=== PATIENT | female | born 1980 | race Caucasian/White ===

== ENCOUNTER 2019-06-22 09:05 | Outpatient (CLI) | payer OTHER | END 2019-06-22 09:06 | disposition home or self-care (01) | LOC: LAB 09:05 → CT 09:10 | PROVIDERS: ATTEND Nurse Practitioner Family | DX: S00.93XA Contusion of unspecified part of head, initial encounter (principal); Z53.9 Procedure and treatment not carried out, unspecified reason | CPT/HCPCS: 36415; 84702 ==